=== PATIENT | male | born 1990 ===

== ENCOUNTER 2018-08-08 12:56 | Emergency (ER) | payer OTHER ==
[2018-08-08 13:23] VITALS: BP 136/87
--- NOTE | 2018-08-08 13:37 | UC ---
Respiratory Complaint HPI - HPI Summary HPI Summary: 27 yo male presents with sinus congestion, post nasal drip, hoarse voice, and dry cough - getting worse over the last 1.5 weeks. He tells me that his cough began and he thought it was a viral cold like a lot of his co-workers and friends have had, but over the last 2-3 days has gotten worse. He feels more fatigued and is coughing more. Has been taking an OTC cold and flu medication with no relief. Denies fever, chills, SOB, chest pain, n/v. He is still smoking daily - History of Current Complaint Chief Complaint: UCRespiratory Stated Complaint: COUGH Time Seen by Provider: 08/08/18 13:37 Hx Obtained From: Patient Onset/Duration: Gradual Onset Timing: Constant Severity Initially: Mild Severity Currently: Mild Pain Intensity: 4 Pain Scale Used: 0-10 Numeric Character: Cough: Nonproductive - Allergies/Home Medications Allergies/Adverse Reactions: Allergies Allergy/AdvReac Type Severity Reaction Status Date / Time amoxicillin Allergy Hives Verified 08/08/18 13:24 Home Medications: Home Medications D-Methorphan/PE/Acetaminophen [Daytime Cold-Flu Relief Sftgl] 1 tab PO ONCE PRN 08/08/18 [History Confirmed 08/08/18] PMH/Surg Hx/FS Hx/Imm Hx - Additional Past Medical History Additional PMH: None - Surgical History Surgical History: Yes Surgery Procedure, Year, and Place: 2010 Tracheotomy. 2010 - Abcess removed - chin. 2010 - cyst removed on ear. tooth removal - 4 molars - Family History Known Family History: Positive: None Family History: no known cardi0-respiratory issues in lineage - Social History Occupation: Employed Full-time Lives: With Family Alcohol Use: Occasionally Substance Use Type: Marijuana Substance Use Comment - Amount & Last Used: daily Smoking Status (MU): Current Every Day Smoker Type: Cigarettes Amount Used/How Often: 1 ppd Length of Time of Smoking/Using Tobacco: 9 years Have You Smoked in the Last Year: Yes Household Exposure Type: Cigarettes - Immunization History Most Recent Influenza Vaccination: none Most Recent Tetanus Shot: high school Most Recent Pneumonia Vaccination: none Review of Systems Constitutional: Negative Skin: Negative Eyes: Negative ENT: Sinus Congestion Respiratory: Cough Cardiovascular: Negative Gastrointestinal: Negative Neurovascular: Negative Neurological: Negative Psychological: Negative All Other Systems Reviewed And Are Negative: Yes Physical Exam - Summary Physical Exam Summary: GENERAL: NAD. WDWN. No pain distress. SKIN: No rashes, sores, lesions, or open wounds. HEENT: Head: AT/NC Eyes: Conjunctiva clear without inflammation or discharge. Ears: Hearing grossly normal. TMs intact, no bulging, erythema, or edema. Nose: Nasal mucosa pink and moist. NTTP maxillary and frontal sinus. Throat: Posterior oropharynx without exudates, erythema, or tonsillar enlargement. Uvula midline. NECK: Supple. Nontender. No lymphadenopathy. CHEST: Mild wheezing throughout. No r/r. No accessory muscle use. Breathing comfortably and in no distress. CV: RRR. Without m/r/g. Pulses intact. Cap refill <2seconds NEURO: Alert. PSYCH: Age appropriate behavior. Triage Information Reviewed: Yes Vital Signs: Initial Vital Signs Temp 97.6 F 08/08/18 13:19 Pulse 79 08/08/18 13:19 Resp 18 08/08/18 13:19 BP 136/87 08/08/18 13:19 Pulse Ox 99 08/08/18 13:19 Vital Signs Reviewed: Yes Diagnostic Evaluation - Laboratory O2 Sat by Pulse Oximetry: 99 Respiratory Course/Dx - Course Course Of Treatment: Suspect bronchitis and pharyngitis. Rx for zpak. He is requesting a work for note today, which will be provided to him. - Differential Dx/Diagnosis Provider Diagnoses: Bronchitis Discharge - Sign-Out/Discharge Documenting (check all that apply): Patient Departure All imaging exams completed and their final reports reviewed: No Studies - Discharge Plan Condition: Stable Disposition: HOME Prescriptions: Azithromycin TAB* [Zithromax TAB (Z-MANNIE) 250 mg #6 tabs] 2 tab PO .TODAY, THEN 1 DAILY #1 mannie Patient Education Materials: Acute Bronchitis (ED) Forms: *Work Release Referrals: No Primary Care Phys,NOPCP [Primary Care Provider] - Additional Instructions: If you develop a fever, shortness of breath, chest pain, new or worsening symptoms - please call your PCP or go to the ED. Your blood pressure was mildly elevated at todays visit. Please see your primary provider within 4 weeks for recheck and re-evaluation. - Billing Disposition and Condition Condition: STABLE Disposition: Home
== END 2018-08-08 13:51 | disposition home or self-care (01) ==
LOC: UCEAST 12:56
DX: J40 Bronchitis, not specified as acute or chronic (principal); Z88.0 Allergy status to penicillin; F17.210 Nicotine dependence, cigarettes, uncomplicated
CPT/HCPCS: 99212; G0463

== ENCOUNTER 2019-04-01 16:35 | Emergency (ER) | payer OTHER ==
[2019-04-01 16:46] VITALS: BP 115/78
--- NOTE | 2019-04-01 17:14 | UC ---
Throat Pain/Nasal Neptali HPI - HPI Summary HPI Summary: patient reports sore throat and nasal congestion since yesterday. has taken no meds so far. no fever or cough, feels "post nasal drip in throat" - History of Current Complaint Chief Complaint: UCRespiratory Stated Complaint: SORE THROAT Time Seen by Provider: 04/01/19 16:38 Hx Obtained From: Patient Onset/Duration: Gradual Onset Severity: Mild Pain Intensity: 2 Associated Signs & Symptoms: Positive: Sinus Discomfort, Nasal Discharge. Negative: Hoarseness, Fever - Allergies/Home Medications Allergies/Adverse Reactions: Allergies Allergy/AdvReac Type Severity Reaction Status Date / Time amoxicillin Allergy Hives Verified 08/08/18 13:24 Home Medications: Home Medications Multivitamin [Multivitamins] 04/01/19 [History] PMH/Surg Hx/FS Hx/Imm Hx Previously Healthy: Yes - Surgical History Surgical History: Yes Surgery Procedure, Year, and Place: 2010 Tracheotomy. 2010 - Abcess removed - chin. 2010 - cyst removed on ear. tooth removal - 4 molars - Family History Known Family History: Positive: None Family History: no known cardi0-respiratory issues in lineage - Social History Occupation: Employed Full-time - [employer] Lives: With Family Alcohol Use: Occasionally Substance Use Type: Marijuana Substance Use Comment - Amount & Last Used: daily Smoking Status (MU): Former Smoker Type: Cigarettes Amount Used/How Often: 1 ppd Length of Time of Smoking/Using Tobacco: 9 years Have You Smoked in the Last Year: Yes Household Exposure Type: Cigarettes - Immunization History Most Recent Influenza Vaccination: none Most Recent Tetanus Shot: high school Most Recent Pneumonia Vaccination: none Review of Systems All Other Systems Reviewed And Are Negative: Yes Constitutional: Negative: Fever, Chills Skin: Positive: Negative ENT: Positive: Sore Throat, Sinus Congestion. Negative: Ear Ache Respiratory: Negative: Cough Cardiovascular: Positive: Negative Gastrointestinal: Positive: Negative Musculoskeletal: Positive: Negative Neurological: Positive: Negative. Negative: Headache Psychological: Positive: Negative Is Patient Immunocompromised?: No Physical Exam Triage Information Reviewed: Yes Appearance: Well-Appearing, No Pain Distress, Well-Nourished Vital Signs: Initial Vital Signs Temp 97.6 F 04/01/19 16:39 Pulse 83 04/01/19 16:39 Resp 16 04/01/19 16:39 BP 115/78 04/01/19 16:39 Pulse Ox 98 04/01/19 16:39 Vital Signs Reviewed: Yes Eyes: Positive: Conjunctiva Clear ENT: Positive: Pharyngeal erythema, Nasal congestion, TMs normal. Negative: Nasal drainage, Hoarse voice, Sinus tenderness Neck exam: Normal Neck: Positive: Supple, Nontender, No Lymphadenopathy Respiratory Exam: Normal Respiratory: Positive: Lungs clear Cardiovascular Exam: Normal Cardiovascular: Positive: RRR, No Murmur, Pulses Normal Neurological Exam: Normal Neurological: Positive: Alert Psychological Exam: Normal Skin Exam: Normal Skin: Negative: Rashes Throat Pain/Nasal Course/Dx - Differential Dx/Diagnosis Differential Diagnosis/HQI/PQRI: Sinusitis, Tonsillitis, URI Provider Diagnosis: Upper respiratory infection Discharge - Sign-Out/Discharge Documenting (check all that apply): Patient Departure All imaging exams completed and their final reports reviewed: No Studies - Discharge Plan Condition: Good Disposition: HOME Patient Education Materials: Upper Respiratory Infection (ED) Forms: *Work Release Referrals: No Primary Care Phys,NOPCP [Primary Care Provider] - Additional Instructions: drink plenty of fluids and rest try over the counter cold symptom relief medication and VICKs vapo rub Tylenol or ibuprofen as directed for pain Return if worsening - Billing Disposition and Condition Condition: GOOD Disposition: Home - Attestation Statements Provider Attestation: Per institutional requirements, I have reviewed the chart, however, I was not consulted specifically or made aware of this patient by the midlevel provider. I did not personally evaluate, interact with , or disposition this patient.
== END 2019-04-01 17:30 | disposition home or self-care (01) ==
LOC: UCEAST 16:35
DX: J06.9 Acute upper respiratory infection, unspecified (principal); Z88.0 Allergy status to penicillin; Z87.891 Personal history of nicotine dependence
CPT/HCPCS: 87651; 99211; G0463

== ENCOUNTER 2019-07-19 19:30 | Emergency (ER) | payer OTHER ==
[2019-07-19 19:40] VITALS: BP 110/64
--- NOTE | 2019-07-19 19:57 | UC ---
Lower Extremity/Ankle HPI - HPI Summary HPI Summary: 28-year-old male presents with onset of posterior left ankle pain this evening. States it started while he was walking home from work. States the pain improves with rest and worsens with any type of walking or weightbearing. No known injury. No recent antibiotic use. Reports full range of motion to the ankle. Denies erythema, ecchymosis, edema, numbness, or tingling. - History of Current Complaint Chief Complaint: UCLowerExtremity Stated Complaint: L FOOT INJURY Hx Obtained From: Patient Pain Intensity: 6 - Allergies/Home Medications Allergies/Adverse Reactions: Allergies Allergy/AdvReac Type Severity Reaction Status Date / Time amoxicillin Allergy Hives Verified 07/19/19 19:35 Home Medications: Home Medications NK [No Home Medications Reported] 07/19/19 [History Confirmed 07/19/19] PMH/Surg Hx/FS Hx/Imm Hx Previously Healthy: Yes - Denies significant PMH - Surgical History Surgical History: Yes Surgery Procedure, Year, and Place: 2010 Tracheotomy. 2010 - Abcess removed - chin. 2010 - cyst removed on ear. tooth removal - 4 molars - Family History Known Family History: Positive: Non-Contributory - Social History Occupation: Employed Full-time Lives: Alone Alcohol Use: Occasionally Substance Use Type: Marijuana Substance Use Comment - Amount & Last Used: daily Smoking Status (MU): Former Smoker Type: Cigarettes Amount Used/How Often: 1 ppd Length of Time of Smoking/Using Tobacco: 9 years Have You Smoked in the Last Year: Yes Household Exposure Type: Cigarettes - Immunization History Most Recent Influenza Vaccination: none Most Recent Tetanus Shot: high school Most Recent Pneumonia Vaccination: none Review of Systems All Other Systems Reviewed And Are Negative: Yes Constitutional: Negative: Fever, Chills Skin: Negative: Bruising Respiratory: Positive: Negative Cardiovascular: Positive: Negative Gastrointestinal: Positive: Negative Genitourinary: Positive: Negative Motor: Negative: Weakness Neurovascular: Negative: Decreased Sensation Musculoskeletal: Positive: Other: - See HPI Neurological: Positive: Negative Is Patient Immunocompromised?: No Physical Exam - Summary Physical Exam Summary: GENERAL APPEARANCE: Well developed, well nourished, alert and cooperative, and appears to be in no acute distress. CARDIAC: Normal S1 and S2. No S3, S4 or murmurs. Rhythm is regular. There is no peripheral edema, cyanosis or pallor. Extremities are warm and well perfused. Capillary refill is less than 2 seconds. Peripheral pulses intact. LUNGS: Clear to auscultation without rales, rhonchi, wheezing or diminished breath sounds. ABDOMEN: Positive bowel sounds. Soft, nondistended, nontender. No guarding or rebound. No masses or hepatosplenomegally. MUSKULOSKELETAL: ROM intact to all extremities. No joint erythema or tenderness. Normal muscular development. Normal gait. EXTREMITIES: Tenderness over the left achilles tendon without erythema or ecchymosis. + calf squeeze test. Circulation and sensation intact. SKIN: Skin normal color, texture and turgor with no lesions or eruptions. Triage Information Reviewed: Yes Vital Signs: Initial Vital Signs Temp 96.7 F 07/19/19 19:36 Pulse 71 07/19/19 19:36 Resp 20 07/19/19 19:36 BP 110/64 07/19/19 19:36 Pulse Ox 98 07/19/19 19:36 Vital Signs Reviewed: Yes Lower Extremity Course/Dx - Course Course Of Treatment: 28-year-old male presents with onset of posterior left ankle pain this evening. States it started while he was walking home from work. States the pain improves with rest and worsens with any type of walking or weightbearing. No known injury. No recent antibiotic use. Reports full range of motion to the ankle. Denies erythema, ecchymosis, edema, numbness, or tingling. Afebrile. Vital signs stable. Patient had tenderness over the left achilles tendon without erythema or ecchymosis. + calf squeeze test. Circulation and sensation intact. Recommending conservative treatment for an Achilles tendinitis including NSAIDs and RICE. Patient was placed in a cam boot by the RN. He is to follow-up with orthopedic surgery in 7 days if symptoms do not improve. Anticipatory guidance and warning symptoms were reviewed with the patient. Verbalizes understanding and agrees with plan of care. - Differential Dx/Diagnosis Differential Diagnosis/HQI/PQRI: Arthritis, Contusion, Fracture (Closed), Sprain , Tendonitis, Tenosynovitis Provider Diagnosis: Achilles tendinitis of left lower extremity Discharge ED - Sign-Out/Discharge Documenting (check all that apply): Patient Departure All imaging exams completed and their final reports reviewed: No Studies - Discharge Plan Condition: Stable Disposition: HOME Patient Education Materials: Achilles Tendinitis (ED) Forms: *Work Release Referrals: No Primary Care Phys,NOPCP [Primary Care Provider] - Jorje Odell MD [Medical Doctor] - 7 Days Additional Instructions: Based on your exam you likely have an achilles tendinitis. Wear the CAM boot that was applied in the clinic until you are pain free. You may remove to shower and sleep but should wear at all other times. Rest the leg as much as possible. Apply ice to the affected area for 15-20 minutes at least 4 times a day to help with the pain and swelling. Elevate the leg to help reduce swelling. Take acetaminophen (Tylenol) or ibuprofen (Advil, Motrin) according to directions as needed for pain. Follow up with orthopedic surgery in 7 days if symptoms do not improve. Call for an appointment Seek immediate medical attention if you have severe pain not managed with pain medication, you are unable to walk or bear any weight, develop numbness or tingling in the foot or toes, or have any worsening of symptoms. - Billing Disposition and Condition Condition: STABLE Disposition: Home
== END 2019-07-19 20:00 | disposition home or self-care (01) ==
LOC: UCEAST 19:30
DX: M76.62 Achilles tendinitis, left leg (principal); Z87.891 Personal history of nicotine dependence
CPT/HCPCS: 99212; G0463